=== PATIENT | female | born 1960 ===

== ENCOUNTER 2020-11-27 05:35 | Day surgery (SDC) | payer OTHER ==
[~2020-11-27 05:35] MED LIST: COZAAR25 MG PO; LEXAPRO5 MG PO; WELLBUTRIN SR150 MG PO
== END 2020-11-27 13:15 | disposition home or self-care (01) ==
LOC: CIR.AMB 05:35
PROVIDERS: ATTEND Specialist
DX: N84.0 Polyp of corpus uteri (principal); Z20.828 Contact with and (suspected) exposure to other viral communicable diseases

== ENCOUNTER → 2021-03-24 | Outpatient (CLI) | payer OTHER | END | disposition home or self-care (01) | LOC: TOM 10:24 | PROVIDERS: ATTEND Internal Medicine Gastroenterology | DX: K62.5 Hemorrhage of anus and rectum (principal); K64.4 Residual hemorrhoidal skin tags; R10.84 Generalized abdominal pain; R58 Hemorrhage, not elsewhere classified ==

== ENCOUNTER 2021-06-29 13:41 | Outpatient (CLI) | payer OTHER | END 2021-06-29 13:57 | disposition home or self-care (01) | LOC: SONOGRAMA 13:41 | PROVIDERS: ATTEND Obstetrics & Gynecology | DX: D25.1 Intramural leiomyoma of uterus (principal); R10.2 Pelvic and perineal pain ==

== ENCOUNTER 2021-08-10 11:31 | Outpatient (CLI) | payer OTHER | END 2021-08-10 12:07 | disposition home or self-care (01) | LOC: LAB 11:31 | PROVIDERS: ATTEND Specialist | DX: C54.1 Malignant neoplasm of endometrium (principal) ==